=== PATIENT | male | born 1965 | race Caucasian/White ===

== ENCOUNTER → 2019-01-13 | Outpatient (CLI) | payer BC, OTHER ==
[~2019-01-13] MED LIST: ASCO500 PO; CYCL10 PO; DOXY100 PO; FISH1000 PO; Flonase 0.05% N16 GM; HYDACE5 PO; MELO7.5; MULVITMIND PO; NAPR550 PO; OXYACE5T PO; OXYB5 PO; PHENA100 PO; PROC10 PO; PROM25 PO; RXCYCL10 PO; RXNAPNA550 PO; RXOXYACE PO; TAMS.4ER PO; TOCO400 PO; [UNRECOGNIZED DRUG - OTHER] PO
== END | disposition home or self-care (01) ==
LOC: LAB 14:24 → LAB SHORT 14:24
DX: L98.499 Non-pressure chronic ulcer of skin of other sites with unspecified severity (principal); H60.61 Unspecified chronic otitis externa, right ear
CPT/HCPCS: 87070; 87077; 87147; 87186; 87205

== ENCOUNTER 2019-03-25 07:37 | Day surgery (SDC) | payer OTHER ==
[~2019-03-25] VITALS: Ht 185.4 cm; Wt 104.1 kg
[~2019-03-25 07:37] MED LIST changes: +IBUP800 PO; +Loratadine10 MG PO
--- NOTE | 2019-03-25 08:47 | NUR ---
03/25/19 0847 Meliza Vasquez PRE OP TEACHING COMPLETED AT THIS TIME. CALL LIGHT WITHIN REACH. MARTINEZ AT BEDSIDE.
== END 2019-03-25 09:51 | disposition home or self-care (01) ==
LOC: ORSCSDS 07:37
PROVIDERS: Internal Medicine Gastroenterology
PROC: 0DBM8ZX Excision of Descending Colon, Via Natural or Artificial Opening Endoscopic, Diagnostic (ICD-10-PCS; principal; 2019-03-25 09:00)
PROC: 0DBK8ZX Excision of Ascending Colon, Via Natural or Artificial Opening Endoscopic, Diagnostic (ICD-10-PCS; principal; 2019-03-25 09:00)
PROC: 0DBL8ZX Excision of Transverse Colon, Via Natural or Artificial Opening Endoscopic, Diagnostic (ICD-10-PCS; principal; 2019-03-25 09:00)
DX: Z12.11 Encounter for screening for malignant neoplasm of colon (principal); D12.2 Benign neoplasm of ascending colon; D12.3 Benign neoplasm of transverse colon; D12.4 Benign neoplasm of descending colon; K57.30 Diverticulosis of large intestine without perforation or abscess without bleeding; K64.8 Other hemorrhoids; Z87.891 Personal history of nicotine dependence; E66.9 Obesity, unspecified; Z68.30 Body mass index [BMI] 30.0-30.9, adult
CPT/HCPCS: 88305; J2704; J7120

== ENCOUNTER 2020-08-27 07:45 | Day surgery (SDC) | payer OTHER ==
[2020-09-05 12:23] LABS: Performing Lab SYMBIODX; Test Name BRAF
== END 2020-08-27 22:00 | disposition home or self-care (01) ==
LOC: MOI US 07:45
PROVIDERS: Internal Medicine Hematology & Oncology
DX: C49.3 Malignant neoplasm of connective and soft tissue of thorax (principal); E04.1 Nontoxic single thyroid nodule; R03.0 Elevated blood-pressure reading, without diagnosis of hypertension; E78.5 Hyperlipidemia, unspecified; G89.29 Other chronic pain; M54.9 Dorsalgia, unspecified; M19.041 Primary osteoarthritis, right hand; F41.0 Panic disorder [episodic paroxysmal anxiety]; Z88.8 Allergy status to other drugs, medicaments and biological substances; Z87.891 Personal history of nicotine dependence; Z79.899 Other long term (current) drug therapy
CPT/HCPCS: 38505; 76942; 88305; 88341; 88342

== ENCOUNTER → 2020-09-06 | Outpatient (CLI) | payer OTHER | END | disposition home or self-care (01) | LOC: LAB SHORT 07:54 → PLD 07:54 | DX: C43.21 Malignant melanoma of right ear and external auricular canal (principal); H60.391 Other infective otitis externa, right ear | CPT/HCPCS: 88305; 88341; 88342 ==

== ENCOUNTER 2020-10-09 06:08 | Day surgery (SDC) | payer OTHER ==
[~2020-10-09] VITALS: Ht 185.4 cm; Wt 101.9 kg
[~2020-10-09 06:08] MED LIST changes: +CIPRODEX OTIC7.5 M1 RIGHTEAR; +CLOB.05TO RIGHTEAR; +ZYRTEC10 M2 PO
--- NOTE | 2020-10-09 06:31 | NUR ---
PT ADMITTED TO [place]. AGREES WITH PLANNED SURGERY.
--- NOTE | 2020-10-09 06:41 | NUR ---
LUNG SOUNDS CLEAR.
--- NOTE | 2020-10-09 09:11 | NUR ---
Patient up to Ambulate independently. Gait steady. Discharge instructions reviewed with patient. Patient verbalizes understanding. Copy given to patient to take home. Patient States Post-Procedure ride home has been arranged. Discharged via wheelchair to private car for ride home.
== END 2020-10-09 23:04 | disposition home or self-care (01) ==
LOC: ORSCMMR 06:08 → ORD 07:30 → ORSCMMR 07:30
PROVIDERS: Surgery
PROC: 0JH60WZ Insertion of Totally Implantable Vascular Access Device into Chest Subcutaneous Tissue and Fascia, Open Approach (ICD-10-PCS; principal; 2020-10-09 07:30)
DX: C43.9 Malignant melanoma of skin, unspecified (principal); Z87.891 Personal history of nicotine dependence
CPT/HCPCS: 77001; A9270-GY; C1788; J1642; J2250; J2704; J3010; J7120

== ENCOUNTER 2021-01-13 06:02 | Emergency (ER) | payer OTHER ==
[~2021-01-13] VITALS: Ht 188 cm; Wt 103.9 kg
[2021-01-13 06:43] LABS: Source, Urine Clean Catch
[2021-01-13 06:51] LABS: Bilirubin, Urine Neg (Neg); Blood, Urine 2+ (Neg); Glucose Qualitative, Urine Neg (Neg); Ketones, Urine Neg (Neg); Leukocyte Esterase, Urine 1+ (Neg); Nitrite, Urine Neg (Neg); Protein, Urine 2+ (Neg); Specific Gravity, Urine 1.015 (1.003-1.022); Urobilinogen, Urine NORM (Normal)
[2021-01-13 06:53] LABS: Hemoglobin 15.9 g/dL (13.5-17.5); Mean Corpuscular HGB 30.9 pg (26.0-34.0); Mean Corpuscular HGB Conc 34.6 g/dL (31.5-36.5); Mean Corpuscular Volume 89 fL (80-100); Mean Platelet Volume 8.9 fL (9.1-12.4); Platelet Count 412 K/mm3 (150-400); RDW Coefficient Variation 11.7 % (11.7-14.2); Red Blood Cell Count 5.15 M/mm3 (4.30-5.90); White Blood Cell Count 13.13 K/mm3 (4.00-11.30)
[2021-01-13 07:13] LABS: Appearance, Urine Clear (Clear); Color, Urine Yellow (P-Yellow)
[2021-01-13 07:16] LABS: Bacteria Mod /hpf; Red Blood Cells, Urine 0-2 /hpf (0-2); Squamous Epithelial Cells Not Seen /hpf (Few)
[2021-01-13 07:17] LABS: Mucus Light (0-Heavy)
[2021-01-13 07:21] LABS: Alanine Aminotransfer (ALT/SGP 39 U/L (12-78); Albumin, Blood 3.1 g/dL (3.4-5.0); Albumin/Globulin Ratio 0.7 (0.8-1.8); Alk Phos 119 U/L (50-136); Anion Gap 4 mmol/L (6-16); Aspartate Aminotrans (AST/SGOT 21 U/L (12-37); Bilirubin, Total 0.5 mg/dL (0.1-1.0); Blood Urea Nitrogen 11 mg/dL (8-24); Bun/Creatinine Ratio 11.6 (12.0-20.0); CO2, Blood 29 mmol/L (21-32); Calcium, Blood 8.7 mg/dL (8.5-10.1); Chloride, Blood 102 mmol/L (98-108); Creatinine, Blood 0.95 mg/dL (0.60-1.20); Globulin, Blood 4.3 g/dL (2.2-4.0); Glomerular Filtration Rate >60 (60-); Glucose, Blood 106 mg/dL (70-99); Sodium, Blood 135 mmol/L (136-145); Total Protein, Blood 7.4 g/dL (6.4-8.2)
[2021-01-13 07:23] LABS: BAND PERCENT MAN 22 % (0-8); BASOPHILS PERCENT MAN 0 % (0-2); EOSINOPHILS ABSOLUTE MAN 0.39 K/mm3 (0.00-0.68); EOSINOPHILS PERCENT MAN 3 % (0-6); LYMPHOCYTES ABSOLUTE MAN 3.41 K/mm3 (0.84-5.20); LYMPHOCYTES PERCENT MAN 26 % (21-46); METAMYELOCYTE ABSOLUTE MAN 0.39 K/mm3 (0.00-0.00); METAMYELOCYTE PERCENT MAN 3 % (0-0); MONOCYTES ABSOLUTE MAN 2.36 K/mm3 (0.16-1.47); MONOCYTES PERCENT MAN 18 % (4-13); NEUTROPHILS ABSOLUTE MAN 6.56 K/mm3 (1.96-9.15); SEG NEUTROPHILS PERCENT MAN 28 % (41-73); TOTAL CELLS COUNTED 100
[2021-01-13 08:37] LABS: Cholesterol 169 mg/dL (50-200); Triglycerides 127 mg/dL (30-160)
[2021-01-13] MEDS ORDERED: Prednisone20 MG PO (09:40)
[2021-01-13] MEDS ORDERED: Prilosec Otc20 MG PO (09:40)
[2021-01-13] MEDS ORDERED: Cipro500 MG PO (09:40)
[2021-01-13] MEDS ORDERED: Roxicodone5 MG PO (09:40)
== END 2021-01-13 10:11 | disposition home or self-care (01) ==
LOC: ER 06:02
PROVIDERS: Emergency Medicine
DX: K85.90 Acute pancreatitis without necrosis or infection, unspecified (principal); N20.0 Calculus of kidney; Z88.0 Allergy status to penicillin; Z88.1 Allergy status to other antibiotic agents; Z88.6 Allergy status to analgesic agent; Z79.899 Other long term (current) drug therapy
CPT/HCPCS: 36415; 74177; 80053; 81001; 82150; 82465; 83690; 84478; 85025; 87086; 96374-59; 96375; 99284-25; A9270; J2270; J2405; J2930; J7120; Q9967

== ENCOUNTER 2021-01-20 03:37 | Inpatient (IN) | payer OTHER ==
[~2021-01-20] VITALS: Ht 188 cm; Wt 99.8 kg
[~2021-01-20 03:37] MED LIST changes: +Cipro500 MG PO; +Prednisone20 MG PO; +Prilosec Otc20 MG PO; +Roxicodone5 MG PO
[2021-01-20 04:17] LABS: Source, Urine Voided
[2021-01-20 04:19] LABS: Blood, Urine 5+ (Neg); Glucose Qualitative, Urine Neg (Neg); Ketones, Urine 2+ (Neg); Leukocyte Esterase, Urine 1+ (Neg); Nitrite, Urine Pos (Neg); Protein, Urine 4+ (Neg); Urobilinogen, Urine NORM (Normal)
[2021-01-20 04:24] LABS: Appearance, Urine Cloudy (Clear); Bilirubin, Urine 1+ (Neg); Color, Urine Amber (P-Yellow)
[2021-01-20 04:30] LABS: Amorphous Light (0-Heavy); Bacteria Mod /hpf; Mucus Light (0-Heavy); Red Blood Cells, Urine TNTC /hpf (0-2); Squamous Epithelial Cells Rare /hpf (Few)
[2021-01-20 04:55] LABS: Hematocrit 49.4 % (37.0-53.0); Hemoglobin 17.4 g/dL (13.5-17.5); Mean Corpuscular HGB 31.1 pg (26.0-34.0); Mean Corpuscular HGB Conc 35.2 g/dL (31.5-36.5); Mean Corpuscular Volume 88 fL (80-100); Mean Platelet Volume 8.8 fL (9.1-12.4); Platelet Count 492 K/mm3 (150-400); RDW Coefficient Variation 11.8 % (11.7-14.2); RDW Standard Deviation 38.2 fL (35.1-46.3)
[2021-01-20 05:19] LABS: Alanine Aminotransfer (ALT/SGP 18 U/L (12-78); Albumin, Blood 2.8 g/dL (3.4-5.0); Albumin/Globulin Ratio 0.6 (0.8-1.8); Alk Phos 93 U/L (50-136); Anion Gap 11 mmol/L (6-16); Aspartate Aminotrans (AST/SGOT 14 U/L (12-37); Bilirubin, Total 0.5 mg/dL (0.1-1.0); Blood Urea Nitrogen 15 mg/dL (8-24); Bun/Creatinine Ratio 13.3 (12.0-20.0); CO2, Blood 20 mmol/L (21-32); Calcium, Blood 9.2 mg/dL (8.5-10.1); Chloride, Blood 101 mmol/L (98-108); Creatinine, Blood 1.13 mg/dL (0.60-1.20); Globulin, Blood 4.6 g/dL (2.2-4.0); Glomerular Filtration Rate >60 (60-); Glucose, Blood 117 mg/dL (70-99); Potassium, Blood 3.5 mmol/L (3.5-5.5); Sodium, Blood 132 mmol/L (136-145); Total Protein, Blood 7.4 g/dL (6.4-8.2)
[2021-01-20 05:45] LABS: BAND PERCENT MAN 32 % (0-8); BASOPHILS PERCENT MAN 0 % (0-2); EOSINOPHILS PERCENT MAN 1 % (0-6); LYMPHOCYTES ABSOLUTE MAN 2.71 K/mm3 (0.84-5.20); LYMPHOCYTES PERCENT MAN 13 % (21-46); METAMYELOCYTE ABSOLUTE MAN 0.41 K/mm3 (0.00-0.00); METAMYELOCYTE PERCENT MAN 2 % (0-0); MONOCYTES ABSOLUTE MAN 1.67 K/mm3 (0.16-1.47); MONOCYTES PERCENT MAN 8 % (4-13); MYELOCYTE PERCENT MAN 1 % (0-0); NEUTROPHILS ABSOLUTE MAN 15.67 K/mm3 (1.96-9.15); SEG NEUTROPHILS PERCENT MAN 43 % (41-73); TOTAL CELLS COUNTED 100
[2021-01-20 06:26] LABS: CHOL/HDL RATIO 4.6; Cholesterol 161 mg/dL (50-200); HDL Cholesterol 35 mg/dL (>39); LDL/HDL RATIO 2.7; Low Density Lipoprotein Chol 95 mg/dL (0-110); Triglycerides 153 mg/dL (30-160); Very Low Density Lipoprot Chol 30 mg/dL (6-32)
--- NOTE | 2021-01-20 08:25 | NUR ---
PT ARRIVED TO UNIT AT APROX 0800 FROM ED.PT REPORTS NAUSEA AT TIME OF ADMISSION, MEDICATED WITH ZOFRAN PER EMAR. PT REPORTS 5/10 EPIGASTRIC PAIN, DENIES NEED FOR PAIN MEDICATION AT THIS TIME.
[2021-01-20 15:48] LABS: Adenovirus F 40/41 Not Detected (NOT DETECT); Astrovirus Not Detected (NOT DETECT); Campylobacter Sp Not Detected (NOT DETECT); Cryptosporidium Not Detected (NOT DETECT); Cyclospora Cayetanensis Not Detected (NOT DETECT); E. Coli O157 Not Detected (NOT DETECT); Entamoeba Histolytica Not Detected (NOT DETECT); Enteroaggregative E. coli-EAEC Not Detected (NOT DETECT); Enteropathogenic E. coli-EPEC Not Detected (NOT DETECT); Enterotoxigenic E. coli-ETEC Not Detected (NOT DETECT); Giardia Lamblia Not Detected (NOT DETECT); Norovirus GI/GII Not Detected (NOT DETECT); Plesiomonas Shigelloides Not Detected (NOT DETECT); Rotavirus A Not Detected (NOT DETECT); Salmonella Sp Not Detected (NOT DETECT); Sapovirus Not Detected (NOT DETECT); Shiga Toxin-prod E. coli-STEC Not Detected (NOT DETECT); Shigella/Enteroin E. coli-EIEC Not Detected (NOT DETECT); Vibrio Cholerae Not Detected (NOT DETECT); Vibrio Sp Not Detected (NOT DETECT); Yersinia Enterocolitica Not Detected (NOT DETECT)
--- NOTE | 2021-01-21 04:20 | NUR ---
SHIFT SUMMARY: PT A&O X4. VS WNL THROUGHOUT NIGHT. DENIES URINARY SYMPTOMS SINCE ADMINISTRATION OF PYRIDIUM. PT C/O NAUSEA ONCE AND MEDICATED WITH ZOFRAN PER EMAR. PAIN HAS BEEN TOLERABLE THIS SHIFT WITHOUT NEED FOR PAIN MEDICATION. PT CONTINUES TO HAVE LIQ GREEN STOOL. URINE ORANGE IN COLOR. PT INDEPENDENT IN ROOM. IVF INFUSING PER EMAR. MINIMAL URINE OUTPUT THIS SHIFT.
[2021-01-21 04:37] LABS: Hematocrit 42.2 % (37.0-53.0); Hemoglobin 14.2 g/dL (13.5-17.5); Mean Corpuscular HGB 30.2 pg (26.0-34.0); Mean Corpuscular HGB Conc 33.6 g/dL (31.5-36.5); Mean Corpuscular Volume 90 fL (80-100); Mean Platelet Volume 8.5 fL (9.1-12.4); Platelet Count 386 K/mm3 (150-400); RDW Coefficient Variation 11.9 % (11.7-14.2); RDW Standard Deviation 39.2 fL (35.1-46.3); White Blood Cell Count 18.43 K/mm3 (4.00-11.30)
[2021-01-21 04:54] LABS: Amylase, Blood 427 U/L (25-115)
[2021-01-21 04:59] LABS: Alanine Aminotransfer (ALT/SGP 15 U/L (12-78); Albumin, Blood 2.2 g/dL (3.4-5.0); Albumin/Globulin Ratio 0.6 (0.8-1.8); Alk Phos 70 U/L (50-136); Anion Gap 6 mmol/L (6-16); Aspartate Aminotrans (AST/SGOT 10 U/L (12-37); Bilirubin, Total 0.5 mg/dL (0.1-1.0); Blood Urea Nitrogen 9 mg/dL (8-24); Bun/Creatinine Ratio 8.2 (12.0-20.0); CO2, Blood 24 mmol/L (21-32); Chloride, Blood 106 mmol/L (98-108); Globulin, Blood 3.4 g/dL (2.2-4.0); Glomerular Filtration Rate >60 (60-); Glucose, Blood 83 mg/dL (70-99); Potassium, Blood 3.7 mmol/L (3.5-5.5); Sodium, Blood 136 mmol/L (136-145); Total Protein, Blood 5.6 g/dL (6.4-8.2)
[2021-01-21 05:06] LABS: BAND PERCENT MAN 22 % (0-8); BASOPHILS ABSOLUTE MAN 0.18 K/mm3 (0.00-0.23); BASOPHILS PERCENT MAN 1 % (0-2); EOSINOPHILS PERCENT MAN 0 % (0-6); LYMPHOCYTES ABSOLUTE MAN 2.02 K/mm3 (0.84-5.20); LYMPHOCYTES PERCENT MAN 11 % (21-46); METAMYELOCYTE ABSOLUTE MAN 0.18 K/mm3 (0.00-0.00); METAMYELOCYTE PERCENT MAN 1 % (0-0); MONOCYTES ABSOLUTE MAN 2.02 K/mm3 (0.16-1.47); MONOCYTES PERCENT MAN 11 % (4-13); SEG NEUTROPHILS PERCENT MAN 54 % (41-73); TOTAL CELLS COUNTED 100
--- NOTE | 2021-01-21 17:11 | NUR ---
SUMMARY NO ACUTE CHANGES T/O SHIFT. MEDICATED ONCE DURING SHIFT FOR NAUSEA. PT TOLERATING SMALL AMOUNTS OF CLEAR LIQUIDS. PT REPORTS CONTINUES TO HAVE FREQUENT EPISODES OF LOOSE STOOL. ORDERS TO START PEPTO THIS EVENING. SPOUSE AT BEDSIDE. DENIES ANY NEEDS AT THIS TIME. CALL LIGHT IN REACH.
[2021-01-22 04:13] LABS: BASOPHILS ABSOLUTE AUTO 0.13 K/mm3 (0.00-0.23); BASOPHILS PERCENT AUTO 1 % (0-2); Hematocrit 42.1 % (37.0-53.0); Hemoglobin 14.5 g/dL (13.5-17.5); LYMPHOCYTES ABSOLUTE AUTO 2.69 K/mm3 (0.84-5.20); LYMPHOCYTES PERCENT AUTO 16 % (21-46); MONOCYTES ABSOLUTE AUTO 1.92 K/mm3 (0.16-1.47); MONOCYTES PERCENT AUTO 11 % (4-13); Mean Corpuscular HGB 30.9 pg (26.0-34.0); Mean Corpuscular HGB Conc 34.4 g/dL (31.5-36.5); Mean Corpuscular Volume 90 fL (80-100); Mean Platelet Volume 8.5 fL (9.1-12.4); Platelet Count 359 K/mm3 (150-400); RDW Coefficient Variation 12.1 % (11.7-14.2); RDW Standard Deviation 39.7 fL (35.1-46.3)
[2021-01-22 04:16] LABS: EOSINOPHILS PERCENT AUTO 1 % (0-6); IMMATURE GRAN ABSOLUTE AUTO 0.71 K/mm3 (0.00-0.10); IMMATURE GRAN PERCENT AUTO 4 % (0-1); NEUTROPHILS ABSOLUTE AUTO 11.55 K/mm3 (1.96-9.15); NEUTROPHILS PERCENT AUTO 67 % (41-73)
[2021-01-22 04:48] LABS: Amylase, Blood 340 U/L (25-115); Magnesium, Blood 1.8 mg/dL (1.6-2.4)
[2021-01-22 04:49] LABS: Alanine Aminotransfer (ALT/SGP 16 U/L (12-78); Albumin, Blood 2.3 g/dL (3.4-5.0); Albumin/Globulin Ratio 0.7 (0.8-1.8); Alk Phos 72 U/L (50-136); Anion Gap 6 mmol/L (6-16); Aspartate Aminotrans (AST/SGOT 14 U/L (12-37); Bilirubin, Total 0.7 mg/dL (0.1-1.0); Blood Urea Nitrogen 5 mg/dL (8-24); Bun/Creatinine Ratio 5.1 (12.0-20.0); CO2, Blood 23 mmol/L (21-32); Chloride, Blood 106 mmol/L (98-108); Creatinine, Blood 0.98 mg/dL (0.60-1.20); Globulin, Blood 3.5 g/dL (2.2-4.0); Glomerular Filtration Rate >60 (60-); Glucose, Blood 95 mg/dL (70-99); Phosphorus, Blood 2.7 mg/dL (2.5-4.9); Potassium, Blood 3.3 mmol/L (3.5-5.5); Sodium, Blood 135 mmol/L (136-145); Total Protein, Blood 5.8 g/dL (6.4-8.2)
--- NOTE | 2021-01-22 04:56 | NUR ---
SHIFT SUMMARY: PT BEGINNING TO C/O OF AN INCREASE IN URINARY URGENCY. PT GETTING OUT OF BED TO VOID APPROX Q15 MIN. VOIDING 75CC EACH TIME. URINE ORANGE D/T PYRIDIUM BUT APPEARS VERY CONCENTRATED. PT ENCOURAGED TO DRINK WATER AND CRANBERRY JUICE TOLERATED. NEW ORDER FOR A ONE TIME DOSE OF VALIUM FOR URINARY SPASMS. PT CONTINUES TO HAVE GREEN DIARRHEA. C/O NAUSEA AND EPIGASTRIC PAIN IN BEGINNING OF SHIFT AND MEDICATED WITH ZOFRAN AND PERCOCET PER EMAR.
[2021-01-22 04:59] LABS: BAND PERCENT MAN 11 % (0-8); BASOPHILS ABSOLUTE MAN 0.17 K/mm3 (0.00-0.23); BASOPHILS PERCENT MAN 1 % (0-2); EOSINOPHILS ABSOLUTE MAN 0.17 K/mm3 (0.00-0.68); EOSINOPHILS PERCENT MAN 1 % (0-6); LYMPHOCYTES ABSOLUTE MAN 3.09 K/mm3 (0.84-5.20); LYMPHOCYTES PERCENT MAN 18 % (21-46); MONOCYTES ABSOLUTE MAN 1.37 K/mm3 (0.16-1.47); MONOCYTES PERCENT MAN 8 % (4-13); NEUTROPHILS ABSOLUTE MAN 12.38 K/mm3 (1.96-9.15); SEG NEUTROPHILS PERCENT MAN 61 % (41-73); TOTAL CELLS COUNTED 100
--- NOTE | 2021-01-22 18:16 | NUR ---
SHIFT SUMMARY NO ACUTE CHANGES THIS SHIFT. PATIENT IS ALERT, ORIENTED, ABLE TO MAKE HIS NEEDS KNOWN. HE WAS NAUSEOUS OFF AND OF THIS SHIFT WHEN HE TRIED TO SIP ANYTHING OTHER THAN WATER AND CRANBERRY JUICE. PRN CHERYLE DE ORDERED AND SOME MED CHANGES PER . PATIENT IS INDEPENDENT IN HIS ROOM. HE SHOWERED WHEN HIS CAME TO VISIT THIS EVENING. BED LOW AND LOCKED, CALL LIGHT WITHIN REACH. WILL CONT TO MONITOR AND PROVIDE REPORT TO NOC RN.
[2021-01-23 04:41] LABS: BASOPHILS PERCENT AUTO 1 % (0-2); Hematocrit 38.4 % (37.0-53.0); Hemoglobin 13.3 g/dL (13.5-17.5); LYMPHOCYTES ABSOLUTE AUTO 1.99 K/mm3 (0.84-5.20); LYMPHOCYTES PERCENT AUTO 14 % (21-46); MONOCYTES ABSOLUTE AUTO 1.76 K/mm3 (0.16-1.47); MONOCYTES PERCENT AUTO 13 % (4-13); Mean Corpuscular HGB 30.7 pg (26.0-34.0); Mean Corpuscular HGB Conc 34.6 g/dL (31.5-36.5); Mean Corpuscular Volume 89 fL (80-100); Mean Platelet Volume 8.6 fL (9.1-12.4); Platelet Count 331 K/mm3 (150-400); RDW Coefficient Variation 12.1 % (11.7-14.2); RDW Standard Deviation 39.4 fL (35.1-46.3); Red Blood Cell Count 4.33 M/mm3 (4.30-5.90); White Blood Cell Count 14.02 K/mm3 (4.00-11.30)
[2021-01-23 04:42] LABS: EOSINOPHILS ABSOLUTE AUTO 0.17 K/mm3 (0.00-0.68); EOSINOPHILS PERCENT AUTO 1 % (0-6); IMMATURE GRAN ABSOLUTE AUTO 0.57 K/mm3 (0.00-0.10); IMMATURE GRAN PERCENT AUTO 4 % (0-1); NEUTROPHILS ABSOLUTE AUTO 9.43 K/mm3 (1.96-9.15); NEUTROPHILS PERCENT AUTO 67 % (41-73)
[2021-01-23 05:13] LABS: Alanine Aminotransfer (ALT/SGP 15 U/L (12-78); Albumin/Globulin Ratio 0.6 (0.8-1.8); Alk Phos 68 U/L (50-136); Anion Gap 8 mmol/L (6-16); Aspartate Aminotrans (AST/SGOT 12 U/L (12-37); Bilirubin, Total 0.4 mg/dL (0.1-1.0); Blood Urea Nitrogen 2 mg/dL (8-24); Bun/Creatinine Ratio 2.2 (12.0-20.0); CO2, Blood 20 mmol/L (21-32); Calcium, Blood 7.8 mg/dL (8.5-10.1); Chloride, Blood 108 mmol/L (98-108); Creatinine, Blood 0.91 mg/dL (0.60-1.20); Globulin, Blood 3.2 g/dL (2.2-4.0); Glomerular Filtration Rate >60 (60-); Glucose, Blood 85 mg/dL (70-99); Phosphorus, Blood 2.5 mg/dL (2.5-4.9); Potassium, Blood 3.1 mmol/L (3.5-5.5); Sodium, Blood 136 mmol/L (136-145); Total Protein, Blood 5.2 g/dL (6.4-8.2)
--- NOTE | 2021-01-23 06:40 | NUR ---
PT VSS T/O NIGHT. PT CONT TO HAVE FREQ LIQ GREEN STOOL; IMMODIUM GIVEN X1 W/NO SIG CHANGES REPORTED YET. URINE REMAINS ORANGE, IS MANAGER PERFORMANCE IMPROVEMENT THIS AM. PT DENIES PAIN W/VOID, DOES REP SOME URGENCY THIS AM. PT DENIED ABD PAIN, REP MILD NAUSEA EARLY IN NIGHT, NO EMESIS, PT DENIED NEED FOR NAUSEA MEDS. PT REP TO TRY SOME SOLID FOOD FOR BREAKFAST THIS AM, ORDER UPDATED FOR CREAM OF WHEAT AND TOAST PER PT REQ. PT UP INDEP IN ROOM, IS PLEASANT AND COOPERATIVE W/CARE.
--- NOTE | 2021-01-23 17:55 | NUR ---
SHIFT SUMMARY NO ACUTE CHANGES THIS SHIFT. PATIENT REPORTS URGENCY, BURNING AND FREQUENCY HAS IMPROVED SINCE STARTING THE SOLUMEDROL. HE ALSO HAS STARTED TO TOLERATE A REGULAR DIET. HE AT 100% OF HIS DINNER. HE REMAINS INDEPENDENT IN HIS ROOM. HE CONTINUES TO HAVE FREQUENT LOOSE STOOLS. NS@75ML/HR RUNNING PER ORDERS. BED LOW AND LOCKED, CALL LIGHT WITHIN REACH. WILL CONT TO MONITOR AND PROVIDE REPORT TO ONCOMING SHIFT.
--- NOTE | 2021-01-24 04:34 | NUR ---
SHIFT SUMMARY PT RESTING WELL THIS NOC SHIFT. AAOX4. DENIES PAIN/NAUSEA/EMESIS. INDEPENDENT IN ROOM. GOOD PO INTAKE + OUTPUT. NO ACUTE CHANGES OVER NIGHT. PT CURRENTLY RESTING WELL IN BED WITH CALL LIGHT IN REACH. WILL CONTINUE TO MONITOR + REPORT OFF TO DAY SHIFT RN DURING BEDSIDE REPORTING.
[2021-01-24 04:39] LABS: BASOPHILS ABSOLUTE AUTO 0.04 K/mm3 (0.00-0.23); BASOPHILS PERCENT AUTO 0 % (0-2); EOSINOPHILS PERCENT AUTO 0 % (0-6); Hematocrit 39.4 % (37.0-53.0); Hemoglobin 13.8 g/dL (13.5-17.5); IMMATURE GRAN PERCENT AUTO 3 % (0-1); LYMPHOCYTES ABSOLUTE AUTO 1.52 K/mm3 (0.84-5.20); LYMPHOCYTES PERCENT AUTO 13 % (21-46); MONOCYTES ABSOLUTE AUTO 0.23 K/mm3 (0.16-1.47); MONOCYTES PERCENT AUTO 2 % (4-13); Mean Corpuscular HGB 30.7 pg (26.0-34.0); Mean Corpuscular Volume 88 fL (80-100); Mean Platelet Volume 8.7 fL (9.1-12.4); NEUTROPHILS ABSOLUTE AUTO 10.07 K/mm3 (1.96-9.15); NEUTROPHILS PERCENT AUTO 83 % (41-73); Platelet Count 364 K/mm3 (150-400); RDW Coefficient Variation 12.2 % (11.7-14.2); RDW Standard Deviation 39.4 fL (35.1-46.3); White Blood Cell Count 12.16 K/mm3 (4.00-11.30)
[2021-01-24 04:56] LABS: Anion Gap 7 mmol/L (6-16); Blood Urea Nitrogen 4 mg/dL (8-24); Bun/Creatinine Ratio 5.2 (12.0-20.0); CO2, Blood 23 mmol/L (21-32); Chloride, Blood 111 mmol/L (98-108); Creatinine, Blood 0.78 mg/dL (0.60-1.20); Glomerular Filtration Rate >60 (60-); Glucose, Blood 137 mg/dL (70-99); Potassium, Blood 3.1 mmol/L (3.5-5.5); Sodium, Blood 141 mmol/L (136-145)
--- NOTE | 2021-01-24 07:30 | NUR ---
ASSUMED CARE: PT AWAKE, WATCHING TV. NO ACUTE NEEDS OR DISTRESS AT THIS TIME.
--- NOTE | 2021-01-24 07:59 | NUR ---
PATIENT GAVE THIS STUDENT RN PERMISSION TO CARE FOR HIM TODAY 01/24/21.
--- NOTE | 2021-01-24 09:56 | NUR ---
AGREE WITH MANAGER PSYCHOLOGY'S HEAD TO TOE ASSESSMENT. PT ALERT AND ORIENTED, DENIES CONCERNS. WONDERING IF DR CAN PRESCRIBE ZYRTEC PER [facility]. WILL DISCUSS FURTHER WITH MD WHEN THEY ROUND ON PT.
[2021-01-24] MEDS ORDERED: BUSP5 PO (13:47)
[2021-01-24] MEDS ORDERED: CHOLESTYRAMI239.4 G1 PO (13:47)
[2021-01-24] MEDS ORDERED: CREON DR 12,001 EACH PO (13:48)
[2021-01-24] MEDS ORDERED: PRED20 PO (13:48)
[2021-01-24] MEDS ORDERED: VISBIOME 112.51 EACH PO (13:48)
[2021-01-24] MEDS ORDERED: POTA10T PO (13:48)
--- NOTE | 2021-01-24 15:26 | NUR ---
PT'S IV DC'D WNL. DISCUSSED DIET AND MEDICATIONS WELL FOLLOW UP APPOINTMENTS WITH PT AND HIS . DENIED FURTHER NEEDS OR CONCERNS. ESCORTED OUT VIA WHEEL CHAIR BY RN
== END 2021-01-24 15:00 | disposition home or self-care (01) | DRG 439 ==
LOC: ER 03:37 → SURS 06:04 → EDBEDREQ 07:38 → SURS 07:53
PROVIDERS: Emergency Medicine; Family Medicine; Internal Medicine; ADMIT Internal Medicine
DX: K85.30 Drug induced acute pancreatitis without necrosis or infection (principal); E87.1 Hypo-osmolality and hyponatremia; K52.1 Toxic gastroenteritis and colitis; R65.10 Systemic inflammatory response syndrome (SIRS) of non-infectious origin without acute organ dysfunction; R30.0 Dysuria; E87.6 Hypokalemia; E86.0 Dehydration; N20.0 Calculus of kidney; T45.1X5A Adverse effect of antineoplastic and immunosuppressive drugs, initial encounter; D72.825 Bandemia; R33.9 Retention of urine, unspecified; C43.21 Malignant melanoma of right ear and external auricular canal; C43.22 Malignant melanoma of left ear and external auricular canal; F41.9 Anxiety disorder, unspecified; Z87.442 Personal history of urinary calculi; Z92.21 Personal history of antineoplastic chemotherapy; Z87.891 Personal history of nicotine dependence; Z88.0 Allergy status to penicillin; Z88.5 Allergy status to narcotic agent; Z88.8 Allergy status to other drugs, medicaments and biological substances; Z98.890 Other specified postprocedural states
CPT/HCPCS: 0097U; 36415; 74176; 80048; 80053; 80061; 81001; 82150; 83605; 83690; 83735; 84100; 84443; 85025; 86140; 87040; 87086; 96365; 96367; 96375; 99285-25; A9270; J0696; J1650; J1885; J1956; J2270; J2405; J2930; J3010; J3360; J3480; J7030

== ENCOUNTER 2021-04-02 17:39 | Emergency (ER) | payer OTHER ==
[~2021-04-02] VITALS: Ht 188 cm; Wt 90.7 kg
[~2021-04-02 17:39] MED LIST changes: +BUSP5 PO; +CHOLESTYRAMI239.4 G1 PO; +CREON DR 12,001 EACH PO; +POTA10T PO; +PRED20 PO; +VISBIOME 112.51 EACH PO
[2021-04-02 19:36] LABS: BASOPHILS ABSOLUTE AUTO 0.05 K/mm3 (0.00-0.23); BASOPHILS PERCENT AUTO 0 % (0-2); EOSINOPHILS ABSOLUTE AUTO 0.03 K/mm3 (0.00-0.68); EOSINOPHILS PERCENT AUTO 0 % (0-6); Hematocrit 41.3 % (37.0-53.0); Hemoglobin 13.5 g/dL (13.5-17.5); IMMATURE GRAN ABSOLUTE AUTO 0.15 K/mm3 (0.00-0.10); IMMATURE GRAN PERCENT AUTO 1 % (0-1); LYMPHOCYTES ABSOLUTE AUTO 4.31 K/mm3 (0.84-5.20); LYMPHOCYTES PERCENT AUTO 27 % (21-46); MONOCYTES ABSOLUTE AUTO 1.07 K/mm3 (0.16-1.47); MONOCYTES PERCENT AUTO 7 % (4-13); Mean Corpuscular HGB 30.6 pg (26.0-34.0); Mean Corpuscular HGB Conc 32.7 g/dL (31.5-36.5); Mean Corpuscular Volume 94 fL (80-100); Mean Platelet Volume 8.8 fL (9.1-12.4); NEUTROPHILS ABSOLUTE AUTO 10.57 K/mm3 (1.96-9.15); NEUTROPHILS PERCENT AUTO 65 % (41-73); Platelet Count 375 K/mm3 (150-400); RDW Standard Deviation 44.4 fL (35.1-46.3); Red Blood Cell Count 4.41 M/mm3 (4.30-5.90); White Blood Cell Count 16.18 K/mm3 (4.00-11.30)
[2021-04-02 19:57] LABS: Alanine Aminotransfer (ALT/SGP 27 U/L (12-78); Albumin, Blood 3.4 g/dL (3.4-5.0); Alk Phos 78 U/L (50-136); Anion Gap 6 mmol/L (6-16); Aspartate Aminotrans (AST/SGOT 13 U/L (12-37); Bilirubin, Total 0.2 mg/dL (0.1-1.0); Blood Urea Nitrogen 16 mg/dL (8-24); Bun/Creatinine Ratio 19.4 (12.0-20.0); CO2, Blood 26 mmol/L (21-32); Calcium, Blood 8.9 mg/dL (8.5-10.1); Chloride, Blood 108 mmol/L (98-108); Creatinine, Blood 0.82 mg/dL (0.60-1.20); Globulin, Blood 3.3 g/dL (2.2-4.0); Glomerular Filtration Rate >60 (60-); Glucose, Blood 119 mg/dL (70-99); International Normalized Ratio 0.93; Potassium, Blood 4.3 mmol/L (3.5-5.5); Prothrombin Time Results 10.1 Sec (9.7-11.5); Sodium, Blood 140 mmol/L (136-145); Total Protein, Blood 6.7 g/dL (6.4-8.2)
[2021-04-02] MEDS ORDERED: DELTASONE20 MG PO (20:10)
[2021-04-02 22:25] LABS: SARS-Cov-2 (COVID-19) PCR, MMC NEGATIVE (NEGATIVE)
== END 2021-04-02 23:07 | disposition short-term general hospital (02) ==
LOC: ER 17:39
PROVIDERS: Emergency Medicine; Physician Assistant
DX: C79.31 Secondary malignant neoplasm of brain (principal); C44.90 Unspecified malignant neoplasm of skin, unspecified; Z92.21 Personal history of antineoplastic chemotherapy; Z20.822 Contact with and (suspected) exposure to COVID-19; Z88.0 Allergy status to penicillin; Z88.5 Allergy status to narcotic agent; Z79.899 Other long term (current) drug therapy; Z87.891 Personal history of nicotine dependence
CPT/HCPCS: 36415; 70450; 80053; 85025; 85610; 93005; 93010; 99285-25; U0004

== ENCOUNTER 2021-06-29 14:33 | Emergency (ER) | payer OTHER ==
[~2021-06-29] VITALS: Ht 185.4 cm; Wt 97.5 kg
[~2021-06-29 14:33] MED LIST changes: +DELTASONE20 MG PO
[2021-06-29 15:53] LABS: BASOPHILS ABSOLUTE AUTO 0.06 K/mm3 (0.00-0.23); BASOPHILS PERCENT AUTO 1 % (0-2); EOSINOPHILS ABSOLUTE AUTO 0.02 K/mm3 (0.00-0.68); EOSINOPHILS PERCENT AUTO 0 % (0-6); Hematocrit 39.6 % (37.0-53.0); Hemoglobin 13.3 g/dL (13.5-17.5); IMMATURE GRAN ABSOLUTE AUTO 0.07 K/mm3 (0.00-0.10); IMMATURE GRAN PERCENT AUTO 1 % (0-1); LYMPHOCYTES ABSOLUTE AUTO 1.85 K/mm3 (0.84-5.20); LYMPHOCYTES PERCENT AUTO 14 % (21-46); MONOCYTES ABSOLUTE AUTO 0.43 K/mm3 (0.16-1.47); MONOCYTES PERCENT AUTO 3 % (4-13); Mean Corpuscular HGB 30.9 pg (26.0-34.0); Mean Corpuscular HGB Conc 33.6 g/dL (31.5-36.5); Mean Corpuscular Volume 92 fL (80-100); Mean Platelet Volume 9.1 fL (9.1-12.4); NEUTROPHILS ABSOLUTE AUTO 10.42 K/mm3 (1.96-9.15); NEUTROPHILS PERCENT AUTO 81 % (41-73); Platelet Count 407 K/mm3 (150-400); RDW Coefficient Variation 12.2 % (11.7-14.2); RDW Standard Deviation 41.7 fL (35.1-46.3); White Blood Cell Count 12.85 K/mm3 (4.00-11.30)
[2021-06-29 16:10] LABS: Alanine Aminotransfer (ALT/SGP 24 U/L (12-78); Albumin, Blood 3.5 g/dL (3.4-5.0); Albumin/Globulin Ratio 1.2 (0.8-1.8); Alk Phos 71 U/L (50-136); Anion Gap 5 mmol/L (6-16); Aspartate Aminotrans (AST/SGOT 26 U/L (12-37); Bilirubin, Total 0.2 mg/dL (0.1-1.0); Blood Urea Nitrogen 16 mg/dL (8-24); Bun/Creatinine Ratio 17.6 (12.0-20.0); CO2, Blood 27 mmol/L (21-32); Chloride, Blood 109 mmol/L (98-108); Creatinine, Blood 0.91 mg/dL (0.60-1.20); Glomerular Filtration Rate >60 (60-); Glucose, Blood 118 mg/dL (70-99); Potassium, Blood 4.4 mmol/L (3.5-5.5); Sodium, Blood 141 mmol/L (136-145); Total Protein, Blood 6.5 g/dL (6.4-8.2)
[2021-06-29] MEDS ORDERED: Prednisone20 MG PO (19:50)
[2021-06-29] MEDS ORDERED: LEVE500 PO (19:50)
--- NOTE | 2021-06-30 19:03 | NUR ---
Patient was seen by this RN on 06/29/21. Late Entry: Met with pt and his Molly in the ED. 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 He has previously had an operation to remove tumors from the skull/brain and this was successful, as the tumors were bleeding. However, he has new tumors in the brain now, likely causing his new onset of seizures, and the new onset of seizures are the reason he came to the ER. Dr. Rodriguez is directing his care, but he is currently on vacation. The ER physician was hopeful that Neli COMMISSIONS MANAGER for Dr. Rodriguez would be able to talk with them about hospice. Palliative was called in to discuss pain control, which we touched on, but pt currently has oxycodone prescribed, and he states he doesn't like it, it doesn't touch the pain, and morphine caused upset stomach in the past. He describes the pain as 7 or 8 out of 10 and constant. It's in several locations including bilat shoulders, chest, neck and back. Hoping to have follow up with Neli at Dr. Rodriguez office, and or with patient when the weekend is over.
== END 2021-06-29 20:23 | disposition home or self-care (01) ==
LOC: ER 14:33
PROVIDERS: Physician Assistant
DX: R56.9 Unspecified convulsions (principal); C79.31 Secondary malignant neoplasm of brain; C43.9 Malignant melanoma of skin, unspecified; Z79.899 Other long term (current) drug therapy
CPT/HCPCS: 36415; 70450; 80053; 85025; 99284-25; A9270